=== PATIENT | female | born 1965 | race Caucasian/White ===

== ENCOUNTER 2016-10-15 11:52 | Emergency (ER) | payer OTHER ==
[~2016-10-15] VITALS: Ht 162.6 cm; Wt 93.3 kg
[2016-10-15] MEDS ORDERED: GLUCOTROL5 MG PO (14:17)
[2016-10-15] MEDS ORDERED: METFORMIN HCL1000 MG PO (14:18)
[2016-10-15] MEDS ORDERED: FLONASE16 G1 BOTH NARES (14:19)
[2016-10-15 14:34] LABS: HEMATOCRIT 39.1 % (36.0-46.0); MCH 27.2 PG (29.0-34.0); MCHC 33.5 G/DL (30.0-36.0); MCV 81.3 FL (83-99); MEAN PLAT.VOLUME 9.8 uM^3 (9.5-12.4); PLATELET COUNT 184 K/uL (156-360); RBC DIS.WIDTH-CV 13.5 % (11.8-14.6); RBC DIS.WIDTH-SD 38.5 % (39-53); RED BLOOD COUNT 4.81 M/uL (3.80-5.20)
[2016-10-15 14:50] LABS: CHLORIDE 99 mEq/L (99-109); POTASSIUM 3.9 mEq/L (3.7-5.4); SODIUM 132 mEq/L (136-147)
[2016-10-15 14:51] LABS: GLUCOSE 375 mg/dL (70-99)
[2016-10-15 14:53] LABS: ANION GAP 11 MEQ/L (2-14)
[2016-10-15 14:55] LABS: GFR ESTIMATE (CALCULATED) > 59 mL/min/
[2016-10-15 14:56] LABS: UREA NITROGEN (BUN) 9 mg/dL (9-23)
[2016-10-15] MEDS ORDERED: BACTRIM,SEPT1 TABLET PO (16:05)
[2016-10-15] MEDS ORDERED: KEFLEX500 MG PO (16:05)
[2016-10-15] MEDS ORDERED: PERCOCET 5/31 TABLET PO (16:05)
[2016-10-15] MEDS ORDERED: ZOFRAN ODT4 MG PO (16:05)
[2016-10-15 16:16] VITALS: BP 130/87
== END 2016-10-15 16:17 | disposition home or self-care (01) ==
LOC: EME 11:52 → RME 11:52
PROVIDERS: Physician Assistant
DX: L03.317 Cellulitis of buttock (principal); E11.65 Type 2 diabetes mellitus with hyperglycemia
CPT/HCPCS: 76882; 80048; 85027; 99281; 99284